=== PATIENT | male | born 1950 | race Caucasian/White ===

== ENCOUNTER 2020-02-07 14:02 | Emergency (ER) | payer BC, MEDICARE, OTHER ==
[2020-02-07] MEDS ORDERED: Famotidine 20 MG/2 ML SDV IVPUSH ONE (14:25)
[2020-02-07] MEDS ORDERED: Sodium Chloride 0.9% 10 ML Syringe FLUSH PRN (14:25)
--- NOTE | 2020-02-07 14:25 | EDM.PDOC ---
ED HPI GENERAL MEDICAL PROBLEM - General Chief Complaint: General Stated Complaint: ABDOMINAL PAIN, SOB Time Seen by Provider: 02/07/20 14:15 Source of Information: Reports: Patient. Denies: Old Records ([facility] EMR. No paper hospital chart available.) History Limitations: Reports: No Limitations - History of Present Illness INITIAL COMMENTS - FREE TEXT/NARRATIVE: The patient was brought to the emergency room via private automobile by his granddaughter for evaluation of 10 epigastric discomfort with radiation to the interscapular region and associated with moderate dyspnea and mild nausea. Symptoms started at about 12 PM today and did improve prior to arrival at 09/16 after he took one Prilosec and some Pepto-Bismol at home. He has been noncompliant with his previous Prilosec therapy. He did have similar type symptoms about one week ago. The patient denies any chest pain/pressure, heart flutter, dizziness, orthostasis, orthopnea, diaphoresis, paresthesias, recent decreased exercise tolerance, or any other anginal-type symptoms. No recent history of other abdominal pain, emesis, diarrhea, melena, gross hematochezia, or any previous food intolerance, including fatty foods, etc. although he did have some mild problems with his hemorrhoids about one week ago. He did have a normal bowel movement at about 10 AM today with the patient eating a brownie for breakfast and salmon for lunch just prior to onset of the above symptoms. He denies any gross hematuria, colic, or other UTI symptoms. The patient also denies any recent fever, cough, wheezing, dyspnea, etc.. Onset: Today, Sudden Onset Date: 02/07/20 Onset Time: 12:00 Duration: Intermittent, Improving Location: Reports: Abdomen, Back, Radiates to (As above). Denies: Head, Face, Neck, Upper Extremity, Left, Upper Extremity, Right Quality: Reports: Same as Previous Episode, Sharp Improves with: Reports: Medication Worsens with: Reports: None Context: Reports: Other (As above). Denies: Sick Contact, Trauma Associated Symptoms: Reports: Chest Pain (Atypical epigastric?), Nausea/Vomiting (No emesis), Shortness of Breath. Denies: Confusion, Cough, Diaphoresis, Fever/Chills, Headaches, Loss of Appetite, Malaise, Syncope, Weakness Treatments BLOCK PILER: Reports: Other Medication(s) (As above), Other (see below) Upper Abdomen Pain Score (Numeric/FACES): 2 - Related Data Allergies Allergy/AdvReac Type Severity Reaction Status Date / Time No Known Allergies Allergy Verified 02/07/20 14:21 Home Meds: Home Meds NIFEdipine [Nifedipine ER] 30 mg PO DAILY 05/13/16 [History] Metoprolol Tartrate [Lopressor] 50 mg PO BID 03/28/19 [History] Sildenafil Citrate 50 - 100 mg PO ASDIRECTED PRN 03/28/19 [History] allopurinoL [Zyloprim] 100 mg PO BEDTIME 03/28/19 [History] Losartan/Hydrochlorothiazide [Losartan-HCTZ 100-12.5 MG] 1 each PO DAILY 02/07/20 [History] Omeprazole 20 mg PO BIDAC #1 cap.sr 02/07/20 [Rx] Past Medical History HEENT History: Reports: Impaired Vision, Other (See Below). Denies: Allergic Rhinitis, Cataract, Glaucoma, Hard of Hearing, Macular Degeneration, Otitis Media, Retinal Detachment Other HEENT History: PRESBYOPIA/ASTIGMATISM with the patient wearing glasses. Cardiovascular History: Reports: Arrhythmia, Heart Murmur, High Cholesterol, Hypertension, Syncope, Other (See Below). Denies: Afib, Aneurysm, Blood Clots/VTE/DVT, CAD, Cardiomyopathy, Heart Failure, KS, Pacemaker, PVD Other Cardiovascular History: First-degree AV block. Nonspecific syncope in 2016 with negative limited workup as below. Respiratory History: Denies: Asthma, Bronchitis, Recurrent, COPD, Intubation, Previous, PE, Pneumothorax, TB Gastrointestinal History: Reports: Diverticulosis, GERD, Hemorrhoids, Hepatitis, PUD. Denies: Celiac Disease, Cholelithiasis, Chronic Constipation, Chronic Diarrhea, Colon Polyp, Fecal Incontinence, GI Bleed, Helicobacter Pylori, Hiatal Hernia, Inflammatory Bowel Disease, Irritable Bowel Syndrome, Jaundice, Pancreatitis Other Gastrointestinal History: proctalgia fugax (anal pain). Esophagitis and duodenitis with history of Schatzki's ring and PARIKH'S ESOPHAGUS. Dysphagia requiring esophageal dilatation as below. LFTs elevation of unknown reason Genitourinary History: Reports: BPH, Chronic Renal Insuffiency, Prostate Disorder, Renal Calculus. Denies: Acute Renal Failure, Retention, Urinary, STD, Urinary Incontinence, UTI, Recurrent Other Genitourinary History: Chronic kidney disease stage 3. CHRONIC IgA NEPHRITIS. ERECTILE DYSFUNCTION. History of recurrent bilateral urolithiasis 10 with mostly spontaneous passage however procedures as below. Musculoskeletal History: Reports: Arthritis, Back Pain, Chronic, Gout, Osteoarthritis. Denies: Amputation, Fracture, Neck Pain, Chronic, RA, SLE Other Musculoskeletal History: Sacroiliitis. Neurological History: Reports: Other (See Below). Denies: Cerebral Aneurysms, Concussion, CVA, Headaches, Chronic, Head Trauma, Migraines, MS, Neuropathy, Peripheral, Parkinson's, Seizure, TIA Other Neuro History: Episodic lightheadedness Psychiatric History: Reports: None. Denies: Abuse, Victim of, ADD, ADHD, Addiction, Anxiety, Depression, Psych Hospitalization(s), PTSD, Suicide Attempt, Suicidal Ideation Endocrine/Metabolic History: Reports: Hypokalemia, Obesity/BMI 30+, Vitamin D Deficiency. Denies: Diabetes, Type I, Diabetes, Type II, Diabetes Mellitus, Type 3c, IDDM, Osteopenia, Osteoporosis Hematologic History: Reports: None. Denies: Anemia, Blood Transfusion(s), Iron Deficiency Immunologic History: Reports: None. Denies: AIDS, HIV, SLE Oncologic (Cancer) History: Reports: None. Denies: Basal Cell Carcinoma, Colon, Hodgkin's Lymphoma, Leukemia, Lymphoma, Malignant Melanoma, Non-Hodgkin's Lymphoma, Prostate, Squamous Cell Carcinoma Dermatologic History: Reports: Other (See Below). Denies: Eczema, Psoriasis Other Dermatologic History: ACTINIC KERATOSIS - Infectious Disease History Infectious Disease History: Reports: Chicken Pox. Denies: C-Difficile, Helicobacter Pylori, Measles, Meningitis, Mononucleosis, MRSA, Mumps, Pertussis (Whooping Cough), Rheumatic Fever, Scarlet Fever, Shingles, TB, VRE - Past Surgical History Head Surgeries/Procedures: Reports: None HEENT Surgical History: Reports: Adenoidectomy, Eye Surgery, Oral Surgery, Tonsillectomy. Denies: Laser Surgery, LASIK, Myringotomy w Tube(s), Naso-Sinus Surgery Other HEENT Surgeries/Procedures: Tonsillectomy and adenoidectomy at about age 7. BILATERAL EYE SURGERY/PRK in [place] in 2002. [place] teeth extraction. Cardiovascular Surgical History: Reports: None. Denies: Varicose Respiratory Surgical History: Reports: None. Denies: Thoracentesis GI Surgical History: Reports: Colonoscopy, EGD, Other (See Below). Denies: Appendectomy, Cholecystectomy, Hernia, Abdominal, Hernia, Inguinal, Hernia Repair/Other, Polypectomy Other GI Surgeries/Procedures: EGD with biopsies and esophageal dilatation on 04/01/19. Colonoscopy in about 2018 with results not available. Other Female Surgeries/Procedures: hyperuricemia Male Surgical History: Reports: Circumcision, Kidney Stone Extraction, Lithotripsy (ESWL), Renal Calculus, Ureteral Stent, Other (See Below). Denies: Prostate Biopsy, TURP-Transurethral Resection of Prostate, Vasectomy Other Male Surgeries/Procedures: Vasectomy at age 41. Incision as an . Multiple removal of kidney stones with additional history of lithotripsy. Endocrine Surgical History: Reports: None. Denies: Thyroid Biopsy Neurological Surgical History: Reports: None. Denies: C-Spine, Intracranial, Laminectomy, Lumbar Spine, Sacral Spine, Spinal Fusion, Thoracic Spine, Vertebroplasty Musculoskeletal Surgical History: Reports: None. Denies: Arthroscopic Procedure, Carpal Tunnel, Ganglion Cyst, Joint Replacement, ORIF, Shoulder Surgery Oncologic Surgical History: Reports: None Dermatological Surgical History: Reports: None - Past Imaging History Past Imaging History: Reports: Angiography (Possible in 2016?), Carotid US (05/13/16), CAT Scan (05/13/16), Stress Testing (Cardiolite stress test in 2016?) Social & Family History - Family History HEENT: Reports: None. Denies: Glaucoma, Macular Degeneration, Retinal Detachment Cardiac: Reports: Arrhythmia, Hypertension, Pacemaker, Other (See Below). Denies: Afib, Aneurysm, Blood Clots/VTE/DVT, Bypass, CAD, Cardiomyopathy, Heart Failure, Heart Murmur, High Cholesterol, KS, PVD/COD, Syncope Other Cardiac Family History: Hypertension in father. Brothers 2 with pacemakers for unknown reason in their early 60s. - Tobacco Use Smoking Status *Q: Never Smoker Tobacco Use Within Last Twelve Months: No Used Tobacco, but Quit: No Smoking Cessation Information Provided To Patient: No Second Hand Smoke Exposure: No Second Hand Smoke Education Provided: No - Caffeine Use Caffeine Use: Reports: None. Denies: Coffee, Energy Drinks, Soda, Tea - Alcohol Use Alcohol Use History: No Days Per Week of Alcohol Use: 0 Number of Drinks Per Day: 0 Number of Drinks Per Day Comment: No previous DWIs, problems with alcohol abuse, etc. 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 ED EXAM, GENERAL - Physical Exam Exam: See Below Exam Limited By: No Limitations General Appearance: Alert, WD/WN, No Apparent Distress Eye Exam: Bilateral Eye: EOMI, Normal Inspection (No Nystagmus), PERRL Ears: Normal External Exam, Normal Canal, Normal TMs, Hearing Loss (Bilateral presbycusis- mild) Nose: Normal Inspection, Normal Mucosa, No Blood Throat/Mouth: Normal Inspection, Normal Lips, Normal Teeth, Normal Gums, Normal Oropharynx, Normal Voice, No Airway Compromise. No: Dysphagia, Perioral Cyanosis Head: Atraumatic, Normocephalic. No: Facial Swelling, Facial Tenderness, Sinus Tenderness Neck: Supple, Non-Tender, Full Range of Motion, Carotid Bruit (Mild bilateral carotid bruits). No: Lymphadenopathy (L), Lymphadenopathy (R), Thyromegaly Respiratory/Chest: No Respiratory Distress, Lungs Clear, Normal Breath Sounds, No Accessory Muscle Use, Chest Non-Tender. No: Pleural Rub, Retractions Cardiovascular: Normal Peripheral Pulses, Regular Rate, Rhythm, No Edema, No Gallop, No JVD, No Murmur, No Rub. No: Gallop/S3, Gallop/S4, Friction Rub Peripheral Pulses: 2+: Radial (L), Radial (R), Dorsalis Pedis (L), Dorsalis Pedis (R) GI/Abdominal: Normal Bowel Sounds, Soft, Non-Tender, No Organomegaly, No Distention, No Abnormal Bruit, No Mass, Other (Obese). No: Guarding (Male) Exam: Deferred Rectal (Males) Exam: Deferred Back Exam: Normal Inspection, Full Range of Motion. No: CVA Tenderness (L), CVA Tenderness (R), Muscle Spasm Extremities: Normal Inspection, Normal Range of Motion, Non-Tender, No Pedal Edema, Normal Capillary Refill. No: Richar's Sign Neurological: Alert, Oriented, CN II-XII Intact, Normal Cognition, Normal Gait, Normal Reflexes (Negative Babinski's), No Motor/Sensory Deficits Psychiatric: Normal Affect, Normal Mood Skin Exam: Warm, Dry, Intact, Normal Color, No Rash. No: Diaphoretic, Wound/Incision Lymphatic: No Adenopathy EKG INTERPRETATION EKG Date: 02/07/20 Time: 14:38 Rhythm: NSR Rate (Beats/Min): 80 [place]: Normal (Left) P-Wave: Present QRS: Normal (0.08 seconds with some repolarization changes) ST-T: Normal (Resolution of previous T-wave inversion in V1) QT: Normal ME/PQ Interval: 0.22 seconds representing some progression of his previous borderline first-degree AV block with extreme poor R-wave progression in the anterior leads Comparison: Change From Previous EKG (As above since 05/13/16) EKG Interpretation Comments: 1. No acute ischemic changes 2. First-degree AV block 3. Reolarization changes Course - Vital Signs Last Recorded V/S: Last Vital Signs Temp 36.4 C 02/07/20 14:03 Pulse 77 02/07/20 15:00 Resp 16 02/07/20 15:00 BP 151/76 H 02/07/20 15:00 Pulse Ox 96 02/07/20 15:00 - Orders/Labs/Meds Labs: Laboratory Tests 02/07/20 02/07/20 02/07/20 Range/Units 14:33 14:33 14:33 WBC 10.7 H (4.0-10.2) K/uL RBC 5.22 (4.33-5.41) M/uL Hgb 16.4 (13.1-16.8) g/dL Hct 47.4 (39.0-49.0) % MCV 90.8 (84.0-98.0) fL MCH 31.4 (28.2-33.3) pg MCHC 34.6 (31.7-36.0) g/dL RDW 13.9 (11.2-14.1) % Plt Count 233 (150-350) K/uL Neut % (Auto) 80.7 H (45.0-80.0) % Lymph % (Auto) 9.5 L (10.0-50.0) % [place] % (Auto) 6.8 (2.0-14.0) % Eos % (Auto) 2.3 (0.0-5.0) % Baso % (Auto) 0.7 (0.0-2.0) % Neut # (Auto) 8.61 H (1.40-7.00) K/uL Lymph # (Auto) 1.02 (0.50-3.50) K/uL [place] # (Auto) 0.73 (0.00-1.00) K/uL Eos # (Auto) 0.25 (0.00-0.50) K/uL Baso # (Auto) 0.08 (0.00-0.20) K/uL PT 9.1 L (9.5-12.0) SEC INR 0.9 APTT 20.3 L (24.5-32.8) SEC D-Dimer, Quantitative 147 (0-400) ng/mL Sodium (136-145) mmol/L Potassium (3.5-5.1) mmol/L Chloride (98-107) mmol/L Carbon Dioxide (21.0-32.0) mmol/L BUN (7-18) mg/dL Creatinine (0.51-1.17) mg/dL Est Cr Clr Drug Dosing mL/min Estimated GFR (MDRD) mL/min Glucose (74-106) mg/dL Lactic Acid (0.4-2.0) mmol/L Uric Acid (2.6-7.2) mg/dL Calcium (8.5-10.1) mg/dL Magnesium (1.8-2.4) mg/dL Total Bilirubin (0.2-1.0) mg/dL Direct Bilirubin (0.0-0.2) mg/dL Indirect Bilirubin AST (15-37) U/L ALT (12-78) U/L Alkaline Phosphatase (46-116) IU/L Creatine Kinase (26-308) U/L Creatine Kinase Index (0.0-2.5) % CK-MB (CK-2) (0.00-3.60) ng/mL Troponin I (0.000-0.056) ng/mL NT-Pro-B Natriuret Pep (0-125) pg/mL Total Protein (6.4-8.2) g/dL Albumin (3.4-5.0) g/dL Amylase (25-115) U/L Lipase (73-393) U/L TSH, Ultra Sensitive (0.358-3.740) mIU/mL 02/07/20 02/07/20 02/07/20 Range/Units 14:33 14:33 14:33 WBC (4.0-10.2) K/uL RBC (4.33-5.41) M/uL Hgb (13.1-16.8) g/dL Hct (39.0-49.0) % MCV (84.0-98.0) fL MCH (28.2-33.3) pg MCHC (31.7-36.0) g/dL RDW (11.2-14.1) % Plt Count (150-350) K/uL Neut % (Auto) (45.0-80.0) % Lymph % (Auto) (10.0-50.0) % [place] % (Auto) (2.0-14.0) % Eos % (Auto) (0.0-5.0) % Baso % (Auto) (0.0-2.0) % Neut # (Auto) (1.40-7.00) K/uL Lymph # (Auto) (0.50-3.50) K/uL [place] # (Auto) (0.00-1.00) K/uL Eos # (Auto) (0.00-0.50) K/uL Baso # (Auto) (0.00-0.20) K/uL PT (9.5-12.0) SEC INR APTT (24.5-32.8) SEC D-Dimer, Quantitative (0-400) ng/mL Sodium 142 (136-145) mmol/L Potassium 3.9 (3.5-5.1) mmol/L Chloride 106 (98-107) mmol/L Carbon Dioxide 28.5 (21.0-32.0) mmol/L BUN 28 H (7-18) mg/dL Creatinine 1.62 H (0.51-1.17) mg/dL Est Cr Clr Drug Dosing 42.43 mL/min Estimated GFR (MDRD) 42 mL/min Glucose 187 H (74-106) mg/dL Lactic Acid 1.5 (0.4-2.0) mmol/L Uric Acid 7.0 (2.6-7.2) mg/dL Calcium 9.1 (8.5-10.1) mg/dL Magnesium 2.2 (1.8-2.4) mg/dL Total Bilirubin 2.0 H (0.2-1.0) mg/dL Direct Bilirubin (0.0-0.2) mg/dL Indirect Bilirubin AST 111 H (15-37) U/L ALT 144 H (12-78) U/L Alkaline Phosphatase 122 H (46-116) IU/L Creatine Kinase 101 (26-308) U/L Creatine Kinase Index 1.1 (0.0-2.5) % CK-MB (CK-2) 1.10 (0.00-3.60) ng/mL Troponin I 0.000 (0.000-0.056) ng/mL NT-Pro-B Natriuret Pep 69 (0-125) pg/mL Total Protein 7.2 (6.4-8.2) g/dL Albumin 3.7 (3.4-5.0) g/dL Amylase 66 (25-115) U/L Lipase 200 (73-393) U/L TSH, Ultra Sensitive 2.785 (0.358-3.740) mIU/mL 02/07/20 Range/Units 14:33 WBC (4.0-10.2) K/uL RBC (4.33-5.41) M/uL Hgb (13.1-16.8) g/dL Hct (39.0-49.0) % MCV (84.0-98.0) fL MCH (28.2-33.3) pg MCHC (31.7-36.0) g/dL RDW (11.2-14.1) % Plt Count (150-350) K/uL Neut % (Auto) (45.0-80.0) % Lymph % (Auto) (10.0-50.0) % [place] % (Auto) (2.0-14.0) % Eos % (Auto) (0.0-5.0) % Baso % (Auto) (0.0-2.0) % Neut # (Auto) (1.40-7.00) K/uL Lymph # (Auto) (0.50-3.50) K/uL [place] # (Auto) (0.00-1.00) K/uL Eos # (Auto) (0.00-0.50) K/uL Baso # (Auto) (0.00-0.20) K/uL PT (9.5-12.0) SEC INR APTT (24.5-32.8) SEC D-Dimer, Quantitative (0-400) ng/mL Sodium (136-145) mmol/L Potassium (3.5-5.1) mmol/L Chloride (98-107) mmol/L Carbon Dioxide (21.0-32.0) mmol/L BUN (7-18) mg/dL Creatinine (0.51-1.17) mg/dL Est Cr Clr Drug Dosing mL/min Estimated GFR (MDRD) mL/min Glucose (74-106) mg/dL Lactic Acid (0.4-2.0) mmol/L Uric Acid (2.6-7.2) mg/dL Calcium (8.5-10.1) mg/dL Magnesium (1.8-2.4) mg/dL Total Bilirubin 2.0 H (0.2-1.0) mg/dL Direct Bilirubin 1.2 H (0.0-0.2) mg/dL Indirect Bilirubin 0.8 AST (15-37) U/L ALT (12-78) U/L Alkaline Phosphatase (46-116) IU/L Creatine Kinase (26-308) U/L Creatine Kinase Index (0.0-2.5) % CK-MB (CK-2) (0.00-3.60) ng/mL Troponin I (0.000-0.056) ng/mL NT-Pro-B Natriuret Pep (0-125) pg/mL Total Protein (6.4-8.2) g/dL Albumin (3.4-5.0) g/dL Amylase (25-115) U/L Lipase (73-393) U/L TSH, Ultra Sensitive (0.358-3.740) mIU/mL Meds: Medications Discontinued Medications Generic Name Dose Route Start Last Admin Trade Name Lucy PRN Reason Stop Dose Admin Famotidine 40 mg 02/07/20 14:25 02/07/20 14:58 Pepcid IVPUSH 02/07/20 14:26 40 mg ONETIME ONE Administration Sodium Chloride 10 ml 02/07/20 14:25 02/07/20 15:03 Saline Flush FLUSH 10 ml ASDIRECTED PRN Administration Keep Vein Open - Radiology Interpretation Free Text/Narrative:: Heart monitor shows normal sinus rhythm with heart rate in the 70s to 80s with no ectopy or arrhythmia. Acute abdominal x-rays shows evidence of moderate pulmonary obstructive disease with mild cardiomegaly and aortic valve calcification. No CHF, pulmonary infiltrates, pneumothorax, free air, fluid levels, ileus, obstruction, etc. Departure - Departure Time of Disposition: 15:50 Disposition: Home, Self-Care 01 Condition: Good Clinical Impression: Elevated LFTs, Peptic reflux disease, Hyperuricemia, First degree AV block, Renal insufficiency, Hyperglycemia Hyperlipidemia Qualifiers: Hyperlipidemia type: unspecified Qualified Code(s): E78.5 - Hyperlipidemia, unspecified Hypertension Qualifiers: Hypertension type: essential hypertension Qualified Code(s): I10 - Essential (primary) hypertension - Discharge Information *PRESCRIPTION DRUG MONITORING PROGRAM REVIEWED*: Not Applicable *COPY OF PRESCRIPTION DRUG MONITORING REPORT IN PATIENT BRICE: Not Applicable Prescriptions: Omeprazole 20 mg PO BIDAC #1 cap.sr Instructions: Cholelithiasis, [id number], Famotidine injection Referrals: Beau Vivas MD [Ordering Only Provider] - Forms: ED Department Discharge Additional Instructions: 1. Follow-up with your regular provider ELIA[facility]AR for further workup of your liver enzyme elevations including probable abdominal ultrasound versus CT scan of the abdomen. Recommend repeat CBC, comprehensive metabolic panel, lipase, and amylase at the above follow-up 2. Avoid your Indocin, Tylenol, ibuprofen, Aleve, or any other NSAIDs for the time being 3. Your Zocor will be placed on hold until directed by your primary provider 4. [place] diet including encouragement of oral fluids such as sports drinks, etc. for 24-48 hours as directed. Advance to STRICT low-fat, low-cholesterol diverticulosis diet as tolerated thereafter. 5. STRICT Compliance with your medical therapy as discussed 6. Immediately after this visit verify that your cellular telephone's voicemail has been activated and is empty. Also verify that your home telephone's answering machine is operating properly and has space to receive messages. Note that it is sometimes necessary for us to be able to contact you at a later date to discuss your medical care. 7. Please remember that we are ALWAYS here for you and want to answer any questions you may have. Feel free to call the hospital any time and we call you back ELIAZAR. Sepsis Event Note (ED) - Evaluation Sepsis Screening Result: No Definite Risk - Problem List & Annotations (1) Elevated LFTs SNOMED Code(s): 991826098, 770414439 Code(s): R79.89 - OTHER SPECIFIED ABNORMAL FINDINGS OF BLOOD CHEMISTRY Status: Acute Priority: High Onset Date: 02/07/20 Annotation/Comment:: Likely related to his fatty liver and/or developing cholecystitis. Various therapeutic options were discussed with the patient and his daughter, Jazz Thapa LEESohamDarren, at the [facility] in [place], by telephone, who are requesting that further workup, treatment, etc. be conducted by their regular provider. Symptomatic relief as per discharge instructions. She may need abdominal ultrasound, CT scan of the abdomen and pelvis with IV contrast, ERCP, etc. depending on his clinical course. Clinical exam and vital signs were stable at time of discharge with the patient essentially symptom-free at that time. (2) Hyperlipidemia SNOMED Code(s): 40981624 Code(s): E78.5 - HYPERLIPIDEMIA, UNSPECIFIED Status: Chronic Priority: Medium Annotation/Comment:: Continue to observe closely by his regular provider. Zocor will be held for the time being secondary to his LFTs elevation. Qualifiers: Hyperlipidemia type: unspecified Qualified Code(s): E78.5 - Hyperlipidemia, unspecified (3) Peptic reflux disease SNOMED Code(s): 592619371 Code(s): K21.9 - GASTRO-ESOPHAGEAL REFLUX DISEASE WITHOUT ESOPHAGITIS Status: Chronic Priority: Medium Annotation/Comment:: Compliance with medical therapy strongly encouraged. Symptoms significantly improved with IV medications given in the emergency room. Compliance with increased dose of his r Prilosec was encouraged with further GI/surgical consultation depending on his clinical course. (4) First degree AV block SNOMED Code(s): 832663557 Code(s): I44.0 - ATRIOVENTRICULAR BLOCK, FIRST DEGREE Status: Chronic Priority: Medium Annotation/Comment:: Relatively stable with no history of chest pain or anginal type symptoms. (5) Hyperglycemia SNOMED Code(s): 38396577 Code(s): R73.9 - HYPERGLYCEMIA, UNSPECIFIED Status: Acute Priority: Medium Onset Date: ~02/07/20 Annotation/Comment:: Consider weight loss in moderation and glycosylated hemoglobin by his regular provider. (6) Hyperuricemia SNOMED Code(s): 37883961 Code(s): E79.0 - HYPERURICEMIA W/O SIGNS OF INFLAM ARTHRIT AND TOPHACEOUS DIS Status: Chronic Priority: Medium Annotation/Comment:: Arthritis has been stable with no recent gout attacks, etc. (7) Renal insufficiency SNOMED Code(s): 946269164, 069577359 Code(s): N28.9 - DISORDER OF KIDNEY AND URETER, UNSPECIFIED Status: Chronic Priority: Medium Annotation/Comment:: Stable by history and our medical record. Continue to observe closely by regular provider (8) Hypertension SNOMED Code(s): 77959741 Code(s): I10 - ESSENTIAL (PRIMARY) HYPERTENSION Status: Chronic Priority: Medium Annotation/Comment:: Good control in the emergency room. Continue to observe closely by his regular providers. Qualifiers: Hypertension type: essential hypertension Qualified Code(s): I10 - Essential (primary) hypertension - Problem List Review Problem List Initiated/Reviewed/Updated: Yes - Assessment/Plan Assessment:: As above Plan: As above. Extensive precautions were given to the patient, who is in agreement with the treatment plan. See Patient Instructions for further treatment and plan.
[2020-02-07 14:52] LABS: PTT,PARTIAL THROMBOPLSTIN TIME 20.3 SEC (24.5-32.8)
[2020-02-07 15:36] VITALS: BP 151/76; PULSE 77
== END 2020-02-07 15:50 | disposition home or self-care (01) ==
LOC: LL.ED 14:02 → SUPCPDRO 14:02 → LL.ED 15:50
DX: K27.9 Peptic ulcer, site unspecified, unspecified as acute or chronic, without hemorrhage or perforation (principal); E79.0 Hyperuricemia without signs of inflammatory arthritis and tophaceous disease; I44.0 Atrioventricular block, first degree; I12.9 Hypertensive chronic kidney disease with stage 1 through stage 4 chronic kidney disease, or unspecified chronic kidney disease; N18.3 Chronic kidney disease, stage 3 (moderate); N28.9 Disorder of kidney and ureter, unspecified; R73.9 Hyperglycemia, unspecified; E78.5 Hyperlipidemia, unspecified; K21.9 Gastro-esophageal reflux disease without esophagitis; E66.9 Obesity, unspecified; Z68.34 Body mass index [BMI] 34.0-34.9, adult; Z79.899 Other long term (current) drug therapy
CPT/HCPCS: 36415; 74022; 80053; 82150; 82247; 82248; 82550; 82553; 83605; 83690; 83735; 83880; 84443; 84484; 84550; 85025; 85379; 85610; 85730; 93005; 96374; 99284-25; J3490